=== PATIENT | female | born 2000 | race Caucasian/White ===

== ENCOUNTER 2020-03-16 11:52 | Inpatient (IN) ==
[2020-03-16] MEDS ORDERED: PENICILLIN G POTASSIUM 5 MILLIONUNT in DEXTROSE 5 % IN WATER 100 ML IV ONE ×2 (12:10)
[2020-03-16] MEDS ORDERED: DEXTROSE 5%-LACTATED RINGERS 1,000 ML IV PRN (12:10)
[2020-03-16] MEDS ORDERED: ONDANSETRON 4 MG TAB.RAPDIS PO PRN (12:10)
[2020-03-16] MEDS ORDERED: CALCIUM CARBONATE 500 MG TAB.CHEW PO PRN (12:16)
[2020-03-16] MEDS: RINGER'S SOLUTION,LACTATED 1,000 ML IV ONE ×2 (12:57→19:15)
[2020-03-16] MEDS: OXYTOCIN/DEXTROSE 5%-WATER 30 UNITS/500 ML BAG IV ONE (12:58)
--- NOTE | 2020-03-16 13:15 | HP ---
Chief Complaint - Chief Complaint Date of Service: 03/16/20 Time of Service: 12:56 Chief Complaint: medical induction of labor History of Present Illness: 20 yo at 37 3/7 weeks admitted for induction of labor due to chronic hypertension with superimposed preeclampsia. Patient has been having increased frequency of headaches with higher than normal blood pressures today. Pr/cr ratio has increased from 157 to 386. This complicated by ADHD, CHTN, h/o HSV, and h/o migraines. 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 Migraine headache with aura Onset Date: ~2013 none since high school Panic disorder Onset Date: ~07/30/13 Surgical History: Surgical History (Last Reviewed 03/16/20 @ 13:08 by Roger Banerjee DO) Hx of adenoidectomy Onset Date: Unknown Toddler Hx of myringotomy Onset Date: Unknown Toddler Hx of tonsillectomy Onset Date: Unknown 4 yrs old [place] teeth extracted Onset Date: Unknown Family History: Family History (Last Reviewed 03/16/20 @ 13:08 by Roger Banerjee DO) Mother Alive and well Father Alive and well Grandfather Seizure disorder Maternal Grandmother Seizure disorder Maternal Social History: (Last Reviewed 03/16/20 @ 13:08 by Roger Banerjee DO) Social History: Marital status: Single household members: other current occupational status: employed current occupation: [employer] current occupational exposures/hazards: No Service: No Tobacco: Smoking Status: Former smoker Alcohol: alcohol intake: never Substance Use: substance use type: does not use Dietary Habits: caffeine: Yes caffeine comment: 1/day Type: coffee, carbonated beverages Personal Safety: victim of physical abuse: No victim of emotional abuse: No Review Of Systems (GEN) - Review of Systems Generalized/Overall Review: Present: No Symptoms Reported EENTM: Present: No Symptoms Reported Respiratory: Present: No Symptoms Reported Cardiac: Present: No Symptoms Reported Abdominal: Present: No Symptoms Reported Genitourinary: Present: No Symptoms Reported Musculoskeletal: Present: No Symptoms Reported Neurological: Present: No Symptoms Reported Skin: Present: No Symptoms Reported Endocrine: Present: No Symptoms Reported Immunizations: IMMUNIZATION HX Immunizations Up to Date Yes History of Influenza Vaccine Yes Hx Pneumococcal Vaccination No Allergies/Adverse Reactions: Allergies Allergy/AdvReac Type Severity Reaction Status Date / Time No Known Allergies Allergy Verified 03/16/20 12:13 Home Medications: HOME MEDICATIONS aspirin 81 mg tablet,delayed release 81 mg PO DAILY 11/11/19 [Last Taken 03/14/20 21:00] Vits96/Iron Fum/Folic [ S] 1 tab PO DAILY 01/03/20 [Last Taken 03/15/20 22:00] calcium carbonate 300 mg (750 mg) chewable tablet 300 mg PO QID PRN 02/17/20 [Last Taken Unknown] valacyclovir 1 gram tablet 1,000 mg PO DAILY #30 tab 03/02/20 [Last Taken 03/15/20 22:00] Exam - Exam Vital Signs: Vital Signs - Last Taken Temp 37.4 C 03/16/20 12:18 Pulse 100 03/16/20 12:18 Resp 16 03/16/20 12:18 BP 151/92 H 03/16/20 12:18 Pulse Ox 99 03/16/20 12:18 Constitutional: Present: Alert, Oriented x3, Cooperative, No distress ENT Exam: Present: hearing grossly normal Breasts: Present: Exam deferred Respiratory: Present: lungs clear, no respiratory distress Cardiovascular/Chest: Present: normal peripheral pulses, regular rate, rhythm, no edema Abdomen: Present: soft, nontender, no rebound tenderness, other - gravid /Rectal: Present: Other - cervix was 2/70/-2 last week. Extremity: Present: no calf tenderness Skin Exam: Present: normal color, warm/dry Neurologic: Present: alert, normal mood/affect, oriented x 3, other - DTR 2/4 bilateral patella, no clonus Appearance: Present: appropriate appearance, appropriate insight Eye contact: Present: cooperative, good eye contact, normal speech Thoughts: Present: normal mood /affect Assessment/Plan - Narrative Narrative: Admit for pitocin induction of labor. Epidural PRN. Seizure precautions. - Assessment/Plan (1) Pre-eclampsia superimposed on chronic hypertension Problem: Acute (2) HSV antigen DIF positive Problem: Chronic (3) ADHD Problem: Chronic Qualifiers: Attention deficit-hyperactivity disorder type: unspecified Qualified Code(s): F90.9 - Attention-deficit hyperactivity disorder, unspecified type
[2020-03-16 13:23] LABS: Cocaine Ur Negative (NEGATIVE); Urine Barbiturate Negative (NEGATIVE); Urine Benzodiazepines Negative (NEGATIVE); Urine Opiates Negative (NEGATIVE); Urine PCP Negative (NEGATIVE); Urine THC Negative (NEGATIVE)
[2020-03-16] MEDS: PENICILLIN G POTASSIUM 2.5 MILLIONUNT in DEXTROSE 5 % IN WATER 100 ML IV SCH ×4 (17:11→21:04)
--- NOTE | 2020-03-16 17:51 | PN ---
Progess Note - Interim Date: 03/16/20 Time: 17:34 Narrative: 03/16/20 17:34 Patient rating her contractions 1-2 out of 10 Vital signs stable. Pitocin at 18 mu/min. FHT: 140 baseline, reassuring contractions q 2-5 min Cervix: 2/60/-3, Impression: Intrauterine at 37-3/7 weeks induction of labor for chronic hypertension with superimposed preeclampsia Plan: Newell bulb placed. Continue IOL.
[2020-03-16] MEDS ORDERED: NALOXONE HCL 1 MG/1 ML SYRG IV PRN (18:09)
[2020-03-16] MEDS ORDERED: ONDANSETRON HCL/PF 2 MG/ML VIAL IV PRN (18:09)
[2020-03-16] MEDS ORDERED: fentaNYL CITRATE/PF 50 MCG/ML AMPUL IT SCH (18:15)
--- NOTE | 2020-03-16 19:02 | ANES ---
Anesthesia Pre Procedure Eval Vitals/Labs: Last Vital Signs Temp 37.4 C 03/16/20 12:18 Pulse 100 03/16/20 12:18 Resp 16 03/16/20 12:18 BP 151/92 H 03/16/20 12:18 Pulse Ox 99 03/16/20 12:18 HOME MEDICATIONS aspirin 81 mg tablet,delayed release 81 mg PO DAILY 11/11/19 [Last Taken 03/14/20 21:00] Vits96/Iron Fum/Folic [ S] 1 tab PO DAILY 01/03/20 [Last Taken 03/15/20 22:00] calcium carbonate 300 mg (750 mg) chewable tablet 300 mg PO QID PRN 02/17/20 [Last Taken Unknown] valacyclovir 1 gram tablet 1,000 mg PO DAILY #30 tab 03/02/20 [Last Taken 03/15/20 22:00] Allergies/Adverse Reactions: Allergies Allergy/AdvReac Type Severity Reaction Status Date / Time No Known Allergies Allergy Verified 03/16/20 12:13 - Planned Procedure Planned Procedure: Medical Induction pre-Eclampsia Medication List Reviewed:: Yes Allergies Verified: Yes Medical History (Last Reviewed 03/16/20 @ 19:02 by Andrew Joe CRNA) ADHD (attention deficit hyperactivity disorder) Onset Date: Unknown Anxiety disorder Asthma Onset Date: ~01/04/08 Mild, intermittent HSV (herpes simplex virus) infection Onset Date: Unknown HSV 1 Migraine headache with aura Onset Date: ~2013 none since high school Panic disorder Onset Date: ~07/30/13 Surgical History (Last Reviewed 03/16/20 @ 19:02 by Andrew Joe CRNA) Hx of adenoidectomy Onset Date: Unknown Toddler Hx of myringotomy Onset Date: Unknown Toddler Hx of tonsillectomy Onset Date: Unknown 4 yrs old [place] teeth extracted Onset Date: Unknown Family History (Last Reviewed 03/16/20 @ 19:02 by Andrew Joe CRNA) Mother Alive and well Father Alive and well Grandfather Seizure disorder Maternal Grandmother Seizure disorder Maternal - Family Anesthesia History Family History:: no untoward family reactions to anesthesia - Airway/Neck/Teeth Within Normal Limits:: Yes Teeth Condition: intact Neck Exam: full range of motion Mallampatti Score: 2 Thyromental (T-M) distance: > 6 cm Mandibulo Hyoid distance: > 3 cm - Respiratory Respiratory Physical: lungs clear Smoking Status: Never smoker Sleep Apnea currently treated: No Sleep Apnea by current assessment: No - Cardiovascular Tolerate Activity: Good Heart Sounds: S1 & S2, Regular - Gastrointestinal NPO since: 1200 - Anesthesia Assessment and Plan ASA Class: PS, II, E Anesthesia Type Plan: Epidural Planned difficult intubation/equipment available: No
--- NOTE | 2020-03-16 19:03 | ANES ---
Post Anesthesia Discharge - Transfer of Care Transfer of Care handoff given to nurse: Yes - Anesthesia Post Op Note Anesthesia Post Op Note: Care transferred to OB RN
--- NOTE | 2020-03-16 19:03 | ANES ---
Post Anesthesia Assessment - Vital Signs Vitals: Last Vital Signs Temp 37.4 C 03/16/20 12:18 Pulse 100 03/16/20 12:18 Resp 16 03/16/20 12:18 BP 151/92 H 03/16/20 12:18 Pulse Ox 99 03/16/20 12:18 Airway Patency: Normal - Mental Status Level Of Consciousness: Awake - Pain Level Pain Score: 2 - N/V Assessment Nausea/Vomiting Presence: None Dehydration:: No
--- NOTE | 2020-03-16 19:05 | ANES ---
Anesthesia Procedure Note Procedure Note: ANESTHESIA PROCEDURE NOTE Date of Procedure: 03/16/2020 Time of procedure: 1844. Performed by: Yossi Joe CRNA Power System Engineer: None. Preprocedure diagnosis: Active labor. Post procedure diagnosis: Same. Procedure: Insertion of labor epidural. 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 Findings: See below. Details of the procedure: The patient was placed in a sitting position. Back was prepped with DuraPrep. Patient was then draped in a sterile fashion. Lidocaine 1% was infiltrated to the skin and subcutaneous tissues at the level of the L3 4 interspace. The epidural space was identified using a 18-gauge Tuohy needle with [id number] technique. 20 mcg fentanyl was given intrathecally using a 27 ga. spinal needle. Epidural catheter was inserted without difficulty. Negative test dose was elicited using 5 mL of 1.5% preservative-free lidocaine plus epinephrine 1 200,000. The epidural catheter was then taped and secured in place. EBL: Minimal. Fluids: N/A. Specimen: N/A. Post procedure condition: The patient tolerated the procedure well. No complications were noted. Thank you for this consultation. Russo CRNA
[2020-03-16] MEDS: BUPIVACAINE HCL/0.9 % NACL/PF 250 ML EP PRN (19:25)
[2020-03-17] MEDS: PENICILLIN G POTASSIUM 2.5 MILLIONUNT in DEXTROSE 5 % IN WATER 100 ML IV SCH ×10 (00:37→17:08)
--- NOTE | 2020-03-17 09:10 | PN ---
Progess Note - Interim Date: 03/17/20 Time: 09:06 Narrative: 03/17/20 09:06 Patient comfortable with epidural. Denies headache, visual changes, or epigastric pain. Vital signs stable -blood pressures within normal range. Pitocin at 20 mu/min. FHT: 140 baseline, reassuring contractions q 4-5 min Cervix: 6/70 5/-3, AROM-clear Impression: Intrauterine at 37-4/7 weeks induction of labor for chronic hypertension with superimposed preeclampsia. GBS carrier-status post 5 doses of IV penicillin (last dose at 5 AM) Plan: Continue present plan. If contractions do not increase in frequency or intensity, will place IUPC and consider increasing dose of Pitocin up to 30 milliunits/min if needed.
[2020-03-17] MEDS: BUPIVACAINE HCL/0.9 % NACL/PF 250 ML EP PRN (11:23)
[2020-03-17] MEDS: OXYTOCIN/DEXTROSE 5%-WATER 30 UNITS/500 ML BAG IV ONE (16:10)
[2020-03-17] MEDS ORDERED: LIDOCAINE HCL 50 ML VIAL ONE (20:08)
[2020-03-17] MEDS ORDERED: oxyCODONE HCL/ACETAMINOPHEN 1 TAB TABLET PO PRN (20:31)
[2020-03-17] MEDS ORDERED: BENZOCAINE/MENTHOL 81 SPRAY CAN TP PRN (20:31)
[2020-03-17] MEDS ORDERED: BISACODYL 10 MG SUPP.RECT RC PRN (20:31)
[2020-03-17] MEDS ORDERED: SENNOSIDES 8.6 MG TABLET PO PRN (20:31)
[2020-03-17] MEDS ORDERED: GLYCERIN/WITCH HAZEL LEAF 40 APPL BOX TP PRN (20:31)
[2020-03-17] MEDS ORDERED: HYDROCORTISONE 30 APPL TUBE TP PRN (20:31)
[2020-03-17] MEDS ORDERED: OXYTOCIN/DEXTROSE 5%-WATER 30 UNITS/500 ML BAG IV ONE (20:31)
[2020-03-17] MEDS ORDERED: IBUPROFEN 800 MG TABLET PO PRN (20:31)
[2020-03-17] MEDS ORDERED: LIDOCAINE HCL 50 ML VIAL IJ PRN (20:34)
--- NOTE | 2020-03-17 20:38 | OR ---
Operative Report - Dictated Report Narrative: Spontaneous vaginal delivery of vigorously crying viable male at 1955 on 03/17/2020 with Apgars 9 and 9, weighing 3038 g in TAYA position with tight nuchal cord x2. Cord clamping delayed approximately 1 minute Placenta delivered complete, intact, with three vessel cord Estimated blood loss: Less than 50 ml Anesthesia: Epidural and 15 mL of 1% Xylocaine local Lacerations: Second-degree vaginal laceration repaired with 3-0 Vicryl Rapide History for MU History for Definition: * The number of deliveries resulting in a live the patient experienced prior to current hospitalization * The previous delivery of live twins or any live multiple gestation is considered one live event. *If primagravida or nulliparous is documented select zero for the number of previous live births. Live Events: Live Events: 0
[2020-03-17] MEDS: IBUPROFEN 800 MG TABLET PO PRN (21:21)
[2020-03-17] MEDS: DOCUSATE SODIUM 100 MG CAPSULE PO SCH (21:22)
[2020-03-17] MEDS ORDERED: CALCIUM CARBONATE 500 MG TAB.CHEW PO PRN (21:30)
[2020-03-18] MEDS: IBUPROFEN 800 MG TABLET PO PRN ×2 (06:49→14:22)
[2020-03-18] MEDS: DOCUSATE SODIUM 100 MG CAPSULE PO SCH ×2 (09:31→20:30)
[2020-03-18] MEDS: PRENATAL VITS96/IRON FUM/FOLIC 1 TAB TABLET PO SCH (09:31)
--- NOTE | 2020-03-18 15:10 | PN ---
Subjective - Date and Time Seen Date: 03/18/20 Time: 15:09 Objective - Vitals Vitals: Last Vital Signs Temp 36.4 C 03/18/20 13:05 Pulse 96 03/18/20 13:05 Resp 18 03/18/20 13:05 BP 129/78 03/18/20 13:05 Pulse Ox 100 03/18/20 13:05 Patient denies complaints. Lochia wnl abdomen - soft, nontender Uterus -firm, at umbilicus - 1 no calf tenderness Impression: day #1 - s/p spontaneous vaginal delivery. Chronic hypertension with superimposed preeclampsia-resolving Plan: Continue routine care. Preeclampsia precautions Cauti Physician Documentation - Urinary Catheter Management Urethral (Newell) Date of Insertion: 03/16/20 Time of Insertion: 20:00 Assessment/Plan - Problems/Diagnosis (1) Pre-eclampsia superimposed on chronic hypertension Problem: Acute (2) HSV antigen DIF positive Problem: Chronic (3) ADHD Problem: Chronic Qualifiers: Attention deficit-hyperactivity disorder type: unspecified Qualified Code(s): F90.9 - Attention-deficit hyperactivity disorder, unspecified type
[2020-03-19] MEDS: IBUPROFEN 800 MG TABLET PO PRN ×2 (02:47→08:07)
[2020-03-19] MEDS: PRENATAL VITS96/IRON FUM/FOLIC 1 TAB TABLET PO SCH (08:06)
[2020-03-19] MEDS: DOCUSATE SODIUM 100 MG CAPSULE PO SCH (08:06)
--- NOTE | 2020-03-19 09:16 | PN ---
Subjective - Date and Time Seen Date: 03/19/20 Time: 09:15 Objective - Vitals Vitals: Last Vital Signs Temp 36.7 C 03/19/20 07:50 Pulse 88 03/19/20 07:50 Resp 20 03/19/20 07:50 BP 140/87 H 03/19/20 07:50 Pulse Ox 98 03/19/20 07:50 Patient denies complaints. Breast-feeding well. Denies headache, visual changes, or epigastric pain. Lochia wnl abdomen - soft, nontender Uterus -firm, at umbilicus - 2 no calf tenderness. DTR-2/4, no clonus Impression: day #2 - s/p spontaneous vaginal delivery. Chronic hypertension with superimposed preeclampsia-stable. Plan: Routine discharge instructions. Preeclampsia precautions. Follow-up for blood pressure check in 1 week. Cauti Physician Documentation - Urinary Catheter Management Urethral (Newell) Date of Insertion: 03/16/20 Time of Insertion: 20:00 Assessment/Plan - Problems/Diagnosis (1) Pre-eclampsia superimposed on chronic hypertension Problem: Acute (2) HSV antigen DIF positive Problem: Chronic (3) ADHD Problem: Chronic Qualifiers: Attention deficit-hyperactivity disorder type: unspecified Qualified Code( s): F90.9 - Attention-deficit hyperactivity disorder, unspecified type
[2020-03-19 16:47] VITALS: BP 141/82
== END 2020-03-19 14:40 | disposition home or self-care (01) | DRG 806 ==
LOC: OB 11:52
PROVIDERS: ADMIT Obstetrics & Gynecology; ATTEND Obstetrics & Gynecology
CPT/HCPCS: 59025; 80307; 88307; 88888